=== PATIENT | male | born 1970 | race Caucasian/White ===

== ENCOUNTER 2018-06-08 07:50 | Emergency (ER) | payer MEDICAID, OTHER ==
[~2018-06-08] VITALS: Wt 90.0 kg
[~2018-06-08 07:50] MED LIST: HYDR-3498 PO; IBUP-1542 PO; KETO15CR TOP; LORA10TA3 PO
[2018-06-08 07:55] VITALS: BP 144/78; PULSE 85; RESP 18
--- NOTE | 2018-06-08 08:32 | ERD ---
ER Documentation Chief Complaint Chief Complaint diarrhea x 3 days, vomiting HPI 48-year-old male, with history of diabetes, presents to the emergency department, complaining of 3 days with diarrhea, vomiting, subjective fever and general malaise. The patient describes the diarrhea as watery, green, with some mucus, approximately 4 episodes per day. The vomiting is usually postprandial, 3/day. He denies chills, no abdominal pain. There is a history of a possible suspicious food poisoning. No medications taken at this time. ROS All systems reviewed and are negative except as per history of present illness. Medications Home Meds Active Scripts Acetaminophen* (Tylenol*) 325 Mg Tablet, 2 TAB PO Q8 PRN for PAIN AND OR ELEVATED TEMP, #20 TAB Prov:DEVEN SHAW MD 06/08/18 Ranitidine Hcl* (Zantac*) 150 Mg Tablet, 150 MG PO BID PRN for EPIGASTRIC PAIN, #10 TAB Prov:DEVEN SHAW MD 06/08/18 Ciprofloxacin Hcl* (Ciprofloxacin Hcl*) 250 Mg Tablet, 250 MG PO BID for 3 Days, #6 TAB Prov:DEVEN SHAW MD 06/08/18 Loratadine* (Loratadine*) 10 Mg Tablet, 10 MG PO DAILY, #30 TAB Prov:DANISH BHATTI MECHANICAL ESTIMATOR 12/25/15 Ketoconazole* (Ketoconazole*) 60 Gm Cream.gm., 1 APPLIC TOP BID for 14 Days, EA Prov:DANISH BHATTI MECHANICAL ESTIMATOR 12/25/15 Hydrocodone Bit-Acetaminophen* (Shiloh*) 5-325 Mg Tab, 1 TAB PO Q4H PRN for PAIN, #7 TAB Prov:DUSTYCAREY ANDERSON C 12/13/15 Ibuprofen* (Motrin*) 600 Mg Tab, 600 MG PO Q6, #30 TAB Prov:DUSTYCAREY C 12/13/15 Allergies Allergies: Coded Allergies: No Known Allergy (Unverified , 12/25/15) PMhx/Soc History of Surgery: Yes (ankle sx) Anesthesia Reaction: No Hx Neurological Disorder: No Hx Respiratory Disorders: No Hx Cardiac Disorders: No Hx Psychiatric Problems: No Hx Miscellaneous Medical Probl: No Hx Alcohol Use: No Hx Substance Use: No Hx Tobacco Use: No FmHx Family History: diabetes; No coronary disease Physical Exam Vitals Vital Signs Date Temp Pulse Resp B/P (MAP) Pulse Ox O2 O2 Flow FiO2 Time Delivery Rate 06/08/18 98.1 85 18 144/78 99 07:55 (100) Physical Exam Const: No acute distress Head: Atraumatic Eyes: Normal Conjunctiva ENT: Normal External Ears, Nose and Mouth. Neck: Full range of motion. No meningismus. Resp: Clear to auscultation bilaterally Cardio: Regular rate and rhythm, no murmurs Abd: Soft, non tender, non distended. Normal bowel sounds Skin: No petechiae or rashes Back: No midline or flank tenderness Ext: No cyanosis, or edema Neur: Awake and alert Psych: Normal Mood and Affect Procedures/MDM Physical exam unremarkable, patient in no distress, hydrated, adequate oral intake, abdomen, soft, nontender, no peritoneal signs. Differential diagnosis include but not limited to: gastrointestinal infection bacterial/viral, UTI, appendicitis, colitis, food poisoning, food intolerance. Low suspicion for acute abdomen Physical examination and clinical presentation consistent most likely with infectious Gastroenteritis. During the ED course the patient remained stable, asymptomatic. Clinical impression discussed with the patient who agrees with management. The patient is stable to be discharged home, Some side effects of prescribed medications (headache, rash, nausea, vomiting, diarrhea, interactions with other medications) were reviewed. The patient requires a follow up with the primary care provider in the next 48h. If symptoms persist, worsen or new symptoms develop, then patient should return to the ED immediately. Disclaimer: Inadvertent spelling and grammatical errors are likely due to EHR/dictation software use and do not reflect on the overall quality of patient care. Also, please note that the electronic time recorded on this note does not necessarily reflect the actual time of the patient encounter. Departure Diagnosis: Primary Impression: Infectious gastroenteritis Condition: Stable Additional Instructions: Muchas ena por [facility] para solis servicio. Esperamos que en solis visita a la mariajose de emergencia solis problema medico haya sido solucionado y que se sienta mucho mejor. Para estar seguros que solis mejoria sigue en proceso, le pedimos el favor de hacer earlene mike de seguimiento medico con solis doctor primario en los proximos 2-4 marshall. Lleve con usted estos documentos y las medicinas recetadas. Si leoncio sintomas empeoran, NO SE ESPERE, por favor regrese a mariajose de emergencia INMEDIATAMENTE. En stephan que usted no tenga un mdico de atencin primaria: Llame al mdico o clnica comunitaria de referencia que aparece abajo josué las horas de consultorio para hacer earlene mike para que le vean. CLINICAS: [facility] [phone] [facility] [phone] [facility] [phone] [facility] [phone] [facility] [phone] [id number] [facility] [phone] DEVEN ARAIZA MD Jun 08, 2018 08:32
[2018-06-08] MEDS ORDERED: CIPR-193 PO (08:37)
[2018-06-08] MEDS ORDERED: ACET325T33 PO (08:37)
[2018-06-08] MEDS ORDERED: RANI150T35 PO (08:37)
== END 2018-06-08 08:46 | disposition home or self-care (01) ==
LOC: FTE 07:50
DX: A09 Infectious gastroenteritis and colitis, unspecified (principal); E11.9 Type 2 diabetes mellitus without complications
CPT/HCPCS: 99283